=== PATIENT | female | born 1945 | race Caucasian/White ===

== ENCOUNTER 2019-03-16 16:35 | Emergency (ER) | payer BC, MEDICARE ==
--- NOTE | 2019-03-16 17:15 | Emergency Department Record ---
History of Present Illness - General Chief Complaint: Cough Stated Complaint: BEING TREATED FOR UTI & URI/ NOT GETTING BETTER Time Seen by Provider: 03/16/19 17:07 Source: Patient, Family (grand daughters x 2) Mode of Arrival: Ambulatory Limitations: No limitations - History of Present Illness Initial Comments: 74 y/o from home with complaint of continued urinary frequency and pain. Has recent dx of UTI and on Keflex 500mg TID for 3 days. No change in symptoms. Also ahs cough with green sputum over same period. No change with meds. Non smoker. No DM. Had CXR 3 days ago and told it was normal. Pt has one kidney secondary to renal cell CA. No needed chemo or rad tx. Hx of A fib on Eliquis - Related Data Home Medications Medication Instructions Recorded Confirmed Last Taken Allopurinol [Zyloprim] 300 mg PO DAILY 03/16/19 03/16/19 03/16/19 Alprazolam [Xanax] 0.5 mg PO ASDIR 03/16/19 03/16/19 03/16/19 Amitriptyline HCl 100 mg PO DAILY 03/16/19 03/16/19 03/16/19 Amlodipine Besylate [Norvasc] 5 mg PO DAILY 03/16/19 03/16/19 03/16/19 Apixaban [Eliquis] 5 mg PO DAILY 03/16/19 03/16/19 03/16/19 Aspirin [Aspirin EC] 81 mg PO DAILY 03/16/19 03/16/19 03/16/19 Cholecalciferol (Vitamin D3) 5,000 unit PO DAILY 03/16/19 03/16/19 03/16/19 [Vitamin D3] Clonidine HCl [Catapres] 0.2 mg PO BID 03/16/19 03/16/19 03/16/19 Cyclobenzaprine HCl [Flexeril] 10 mg PO ASDIR 03/16/19 03/16/19 03/16/19 Duloxetine HCl [Cymbalta] 60 mg PO DAILY 03/16/19 03/16/19 03/16/19 Fish Oil/Dha/Epa [Fish Oil 1,200 1 each PO DAILY 03/16/19 03/16/19 03/16/19 mg Fish Oil] Furosemide [Lasix] 40 mg PO DAILY 03/16/19 03/16/1903/16/19 Hydralazine HCl [Apresoline] 25 mg PO QID 03/16/19 03/16/19 03/16/19 Isosorbide Mononitrate [Imdur] 60 mg PO DAILY 03/16/19 03/16/19 03/16/19 Lansoprazole [Prevacid] 30 mg PO DAILY 03/16/19 03/16/19 03/16/19 Lisinopril [Zestril] 40 mg PO DAILY 03/16/19 03/16/19 03/16/19 Metoprolol Tartrate [Lopressor] 100 mg PO DAILY 03/16/19 03/16/19 03/16/19 Multivitamin [Daily Multiple 1 each PO DAILY 03/16/19 03/16/19 03/16/19 Vitamin] Nitroglycerin 0.4MG [Nitrostat 1 tab SL ASDIR 03/16/19 03/16/19 Unknown 0.4MG] Potassium 99 mg PO DAILY 03/16/19 03/16/19 03/16/19 Simvastatin [Zocor] 20 mg PO QHS 03/16/19 03/16/19 03/16/19 Tolterodine Tartrate [Detrol LA] 4 mg PO DAILY 03/16/19 03/16/19 03/16/19 Previous Rx's Medication Instructions Recorded Phenazopyridine HCl [Pyridium] 200 mg PO TID 2 Days #6 tab 03/16/19 Allergies Allergy/AdvReac Type Severity Reaction Status Date / Time adhesive tape Allergy RASH Verified 03/16/19 16:54 aspirin Allergy RASH Verified 03/16/19 16:53 [From Empirin W/Codeine] codeine Allergy RASH Verified 03/16/19 16:53 [From Empirin W/Codeine] morphine Allergy RASH Verified 03/16/19 16:53 sulfamethoxazole Allergy RASH Verified 03/16/19 16:53 [From Bactrim] trimethoprim [From Bactrim] Allergy RASH Verified 03/16/19 16:53 Review of Systems Constitutional: Denies: Chills, Fever, Malaise Eyes: Denies: Eye discharge, Eye pain ENT: Denies: Dental pain, Throat pain Respiratory: Reports: As per HPI, Cough. Denies: Hemoptysis Cardiovascular: Denies: Arrhythmia, Chest pain, Syncope Endocrine: Denies: Fatigue Gastrointestinal: Denies: Abdominal pain, Diarrhea, Nausea, Vomiting Genitourinary: Reports: Dysuria, Frequency, Urgency. Denies: Hematuria Musculoskeletal: Denies: Back pain Skin: Denies: Rash Neurological: Denies: Headache, Tingling, Weakness Psychiatric: Denies: Anxiety Hematological/Lymphatic: Denies: Anemia Physical Exam - General General Appearance: Alert, Oriented x3, Cooperative, No acute distress - Head Head exam: Atraumatic - Eye Eye exam: PERRL, EOMI - ENT ENT exam: Mucous membranes moist Ear exam: Normal external inspection Nasal Exam: Normal inspection Mouth exam: Normal external inspection - Neck Neck exam: Normal inspection, Full ROM. negative: Tenderness - Respiratory Respiratory exam: Decreased breath sounds, Rhonchi. negative: Wheezes - Cardiovascular Cardiovascular Exam: Regular rate, Normal rhythm. negative: Tachycardia - GI/Abdominal GI/Abdominal exam: Soft, Normal bowel sounds. negative: Tenderness - Extremities Extremities exam: Normal inspection - Back Back exam: Reports: Normal inspection - Neurological Neurological exam: Alert, Normal gait, Oriented X3 - Psychiatric Psychiatric exam: Normal affect, Normal mood - Skin Skin exam: Normal color. negative: Rash Course - Reevaluation(s) Reevaluation #1: 03/16/19 18:23 UA with no evidence of UTI. CXR without infiltrate. On Keflex day 3 of 550 TID> Will continue that for cough. Pt still with dysuria. WIll try pyridium and in light of frequent UTI symptoms suggested discussing Interstitial Cystitis with family physician. Medical Decision Making - Lab Data Result diagrams: 03/16/19 17:47 03/16/19 17:47 Disposition Disposition: Discharge Clinical Impression: Bronchitis, Dysuria Disposition: Home, Self-Care Condition: (2) Stable Instructions: Acute Bronchitis (ED) Additional Instructions: Take Pyridium 3 times a day for 2 days. Follow with Family Doctor and discuss thoughts on possible Interstitial Cystitis vs recurrent UTI Return to the ED as needed. Prescriptions: Phenazopyridine HCl [Pyridium] 200 mg PO TID 2 Days #6 tab Forms: Patient Portal Access Time of Disposition: 18:26 Quality - Quality Measures Quality Measures: N/A - Blood Pressure Screening Does Patient Have Any of the Following: No Blood Pressure Classification: Pre-Hypertensive BP Reading Systolic Measurement: 135 Diastolic Measurement: 73 Screening for High Blood Pressure: < Pre-Hypertensive BP, F/U Documented > [[id number]] Pre-Hypertensive Follow-up Interventions: Follow-up with rescreen every year.
--- NOTE | 2019-03-16 17:48 | RADIOLOGY REPORT ---
EXAMINATION: Two View Chest Radiographs EXAM DATE: 03/16/2019 5:45 PM TECHNIQUE: Frontal and lateral views INDICATION: Acute cough for one week. COMPARISON: None FINDINGS: 2 views. Mild bibasilar atelectasis. The lungs are otherwise clear. No visible pneumothorax or pleura l fluid. Normal heart size with atherosclerotic aortic arch calcifications. Spinal canal stimulator device in place. Upper abdominal surgical clips. IMPRESSION: 1. Mild bibasilar atelectasis. Otherwise clear lungs. 2. Atherosclerosis. Dictated by: Gerber Barahona MD on 03/16/2019 5:45 PM. .
[2019-03-16 17:54] LABS: URINE APPEARANCE CLEAR; URINE BILIRUBIN NEGATIVE (NEGATIVE); URINE BLOOD NEGATIVE (NEGATIVE); URINE COLOR YELLOW; URINE GLUCOSE (UA) NEGATIVE (NEGATIVE); URINE KETONE NEGATIVE (NEGATIVE); URINE LEUKOCYTE ESTERASE NEGATIVE (NEGATIVE); URINE NITRITE NEGATIVE (NEGATIVE); URINE PROTEIN NEGATIVE (NEGATIVE); URINE UROBILINOGEN 0.2 E.U./dL (0.20 - 1.00)
[2019-03-16 17:58] LABS: ABSOLUTE NEUTROPHIL COUNT 8.05; HEMATOCRIT 46.4 % (35.0-47.0); MEAN CELL VOLUME 91.3 fl (81-97); MEAN CORPUSCULAR HEMOGLOBIN 29.5 pg (27-33); MEAN CORPUSCULAR HGB CONC 32.3 g/dl (32-36); MEAN PLATELET VOLUME 8.6 fl (7.4-10.4); PLATELET COUNT 249 K/uL (130-400); RED BLOOD COUNT 5.08 M/uL (3.80-5.40); RED CELL DISTRIBUTION WIDTH 15.3 % (11.5-14.5); WHITE BLOOD COUNT W/O DIFF 12.3 K/uL (4.2-12.2)
[2019-03-16 18:06] LABS: PLATELET ESTIMATE NORMAL (NORMAL)
[2019-03-16 18:08] LABS: BLOOD UREA NITROGEN 25 mg/dL (8-23); CREATININE 0.9 mg/dL (0.5-0.9); EST GLOMERULAR FILTRATION RATE > 60 mL/min
[2019-03-16 18:11] LABS: GLUCOSE,RANDOM 98 mg/dL (74-109)
== END 2019-03-16 18:38 | disposition home or self-care (01) ==
LOC: ER 16:35
DX: J20.9 Acute bronchitis, unspecified (principal); R35.0 Frequency of micturition; I48.91 Unspecified atrial fibrillation; R33.0 Drug induced retention of urine; Z79.01 Long term (current) use of anticoagulants
CPT/HCPCS: 71046; 80048; 81003; 85027; 99284